=== PATIENT | female | born 1950 | race Caucasian/White ===

== ENCOUNTER 2016-09-12 19:35 | Emergency (ER) | payer OTHER, BC ==
--- NOTE | 2016-09-12 20:23 | EDPHY ---
H & P Time Seen by Provider: 09/12/16 19:49 HPI/ROS: CHIEF COMPLAINT: Elevated blood pressure HISTORY OF PRESENT ILLNESS: The patient is a 66-year-old female who presents to the emergency department concerned with elevated blood pressure. The patient is in the process of moving from [place] to [place]. Moving truck delivered furniture today. It was mildly stressful. The patient checked her blood pressure at home her initial systolic pressure was 164. Is then range from 147-2 11/160. During in the measurements the patient became anxious due to the elevated blood pressure. She denies any chest pain or shortness of breath. No nausea or vomiting. No headache. No visual change. No change in urination. She denies abdominal pain. Patient took a Klonopin prior to arrival in the emergency department. REVIEW OF SYSTEMS: My complete review of systems is negative except as mentioned in the HPI. Past Medical/Surgical History: Includes ectopic , tympanic membrane perforation, anxiety Past surgical history: Sinus surgery Social history: The patient recently moved from [place]. She does not smoke. Smoking Status: Never smoked Physical Exam: 147/104, 95, 16, 96% on room air GENERAL: Well-appearing, in no acute distress, alert. HEENT: Eyes normal to inspection, normal pharynx, no signs of dehydration. NECK: No thyromegaly, no lymphadenopathy, supple. RESPIRATORY: Clear to auscultation bilaterally, no rales, rhonchi or wheezing. CVS: Regular rate and rhythm, no rubs, murmurs, or gallops. ABDOMEN: Soft, nontender, nondistended, no organomegaly. BACK: Normal to inspection, no CVA tenderness. SKIN: Normal color, no rash, warm, dry. No pallor. EXTREMITIES: No pedal edema, no calf tenderness, no Homans sign or cords, no joint swelling. NEURO/PSYCH: Alert and oriented x3, normal mood and affect, normal motor sensory exam. No obvious cranial nerve deficit. Constitutional: Initial Vital Signs Temperature (C) 36.6 C 09/12/16 19:39 Heart Rate 95 09/12/16 19:39 Respiratory Rate 16 09/12/16 19:39 Blood Pressure 147/104 H 09/12/16 19:39 O2 Sat (%) 96 09/12/16 19:39 O2 Delivery Mode Room Air Allergies/Adverse Reactions: No Known Allergies Allergy (Unverified 10/25/15 13:02) Home Medications: Medication Instructions Recorded Flonase Allergy Relief 09/12/16 Medical Decision Making ED Course/Re-evaluation: In the emergency department I discussed possible etiologies with the patient. I answered all her questions. Patient had a blood pressure repeated and her home machine calibrated with our machine. EKG shows normal sinus rhythm, normal rate, normal axis, normal intervals. There are no ST or T-wave abnormalities. EKG is normal as interpreted by me. I discussed ordering blood test with the patient. She did not want blood tests drawn tonight. I discussed this at length with the patient and her . They would prefer discharge at this time. I gave him warnings prior to leaving. They will return with worsening symptoms. Differential Diagnosis: My differential includes but is not limited to hypertension, renal failure, ACS , acute CA, electrolyte abnormality, anxiety, hypertensive urgency, hypertensive emergency Departure - Departure Disposition: Home, Routine, Self-Care Clinical Impression: Hypertension Qualifiers: Hypertension type: essential hypertension Qualified Code(s): I10 - Essential ( primary) hypertension Condition: Good Instructions: Hypertension (ED) Additional Instructions: Return with increasing chest pain, shortness of breath, headache, weakness, numbness or any other concerns. Referrals: Nerissa Sal MD [Medical Doctor] - 1-2 days without fail
[2016-09-12 21:14] VITALS: RESP 20
--- NOTE | 2016-09-12 21:21 | CPEKG ---
Heart Rate: 79 RR Interval: 759 P-R Interval: 152 QRSD Interval: 72 QT Interval: 360 QTC Interval: 413 P [place]: 54 QRS [place]: 26 T Wave [place]: 15 EKG Severity - NORMAL ECG - EKG Impression: SINUS RHYTHM Electronically Signed By: Kristina Blevins 12-Sep-2016 22:57:50
[2016-09-12 21:36] VITALS: BP 139/76; PULSE 86; TEMP 98.2; O2SAT 94
== END 2016-09-12 21:36 | disposition home or self-care (01) ==
DX: I10 Essential (primary) hypertension (principal)

== ENCOUNTER → 2017-07-09 | Outpatient (CLI) | payer OTHER, BC | LOC: GIMAGING 12:39 | PROVIDERS: ATTEND Internal Medicine | DX: J98.4 Other disorders of lung (principal); S09.90XD Unspecified injury of head, subsequent encounter | CPT/HCPCS: 70150-PO; 71046-PO ==

== ENCOUNTER → 2017-07-23 | Outpatient (CLI) | payer OTHER | LOC: BHLMT 11:00 | PROVIDERS: ATTEND Internal Medicine Cardiovascular Disease | DX: R55 Syncope and collapse (principal) | CPT/HCPCS: 93225-PO; 93226-PO ==

== ENCOUNTER → 2017-07-31 | Outpatient (CLI) | payer OTHER | LOC: BHLMT 10:45 | PROVIDERS: ATTEND Internal Medicine Cardiovascular Disease | DX: R55 Syncope and collapse (principal) | CPT/HCPCS: 93306-PO ==

== ENCOUNTER → 2018-02-03 | Outpatient (CLI) | payer OTHER | LOC: BMCIMAGING 13:23 | PROVIDERS: ATTEND Internal Medicine | DX: Z12.31 Encounter for screening mammogram for malignant neoplasm of breast (principal); Z13.820 Encounter for screening for osteoporosis; M85.89 Other specified disorders of bone density and structure, multiple sites; M81.0 Age-related osteoporosis without current pathological fracture ==